=== PATIENT | male | born 1995 ===

== ENCOUNTER → 2020-05-01 | Outpatient (CLI) | payer SELFPAY | LOC: M LABSMTC 12:05 | PROVIDERS: ATTEND Pediatrics | DX: Z11.52 Encounter for screening for COVID-19 (principal) ==

== ENCOUNTER → 2020-05-20 | Outpatient (REF) | payer SELFPAY ==
[2020-05-21 12:08] LABS: CHLAMYDIA DNA AMPLIFICATION NEGATIVE (NEGATIVE); GC DNA AMPLIFICATION NEGATIVE (NEGATIVE)
== END ==
LOC: M LAB REF 09:13
PROVIDERS: ATTEND Physician Assistant Medical
DX: Z11.3 Encounter for screening for infections with a predominantly sexual mode of transmission (principal)